=== PATIENT | male | born 1965 | race Caucasian/White ===

== ENCOUNTER 2016-05-01 18:34 | Emergency (ER) | payer OTHER ==
[2016-05-01 18:41] VITALS: BMI 31.3
[2016-05-01 19:47] LABS: URINE APPEARANCE CLEAR; URINE BILIRUBIN NEGATIVE (NEGATIVE); URINE COLOR LTYELLOW; URINE GLUCOSE (UA) NEGATIVE (NEGATIVE); URINE KETONE NEGATIVE (NEGATIVE); URINE LEUK ESTERASE NEGATIVE (NEGATIVE); URINE NITRITE NEGATIVE (NEGATIVE); URINE PROTEIN NEGATIVE (NEGATIVE); URINE UROBILINOGEN 2.0 E.U/dl E.U./dl (0.2-1.0)
[2016-05-01 19:47] LABS: BASOPHIL 0.2 % (0-2.0); EOSINOPHIL 0.9 % (0-4.5); MCH 29.8 pg (25.7-33.7); MCHC 33.5 g/dl (32.0-35.9); MEAN PLT VOLUME 9.8 fl (7.5-11.1); NEUTROPHILS 81.8 % (42.8-82.8); PLATELET COUNT 230 K/MM3 (134-434); RDW 13.5 % (11.9-15.9); WHITE BLOOD COUNT 7.3 K/mm3 (4.0-10.0)
[2016-05-01] MEDS ORDERED: SODIUM CHLORIDE 1,000 ML IV STA (19:47)
--- NOTE | 2016-05-01 19:47 | PDOC ---
History of Present Illness - General History Source: Patient Exam Limitations: No Limitations - History of Present Illness Initial Comments: 05/01/16 20:12 The patient is a 51 year old male with significant past medical history of GERD who presents to the ED with 4 days of fever (TMax 101), generalized abdominal pain, and diarrhea. He states having few episodes of watery loose stools. He denies nausea, vomiting or lack of appetite. Patient also has complaints of diffuse body aches and headache. Recently traveled to [facility] for a 7 days trip, returned Friday. Took Motrin this morning. No recent antibiotic use or hospitalizations. Patient denies any known sick contacts. He states he did not receive his flu shot. The patient denies chills, diaphoresis, cough, SOB, chest pain, and palpitations. Allergies: NKDA Social History: No alcohol, tobacco, or drug use reported. Past Surgical History: left hernia repair, appendectomy PCP: Dr. Silvia Unger <Ami Justin - Last Filed: 05/01/16 20:12> - General History Source: Patient <Jesus Wei - Last Filed: 05/01/16 22:14> - General Chief Complaint: Cold Symptoms Stated Complaint: DIARRHEA Time Seen by Provider: 05/01/16 18:37 Past History <Ami Justin - Last Filed: 05/01/16 20:12> - Past Medical History GI Disorders: Yes (REFLUX) - Surgical History Abdominal Surgery: Yes (L HERNIA REPAIR) Appendectomy: Yes - Psycho/Social/Smoking Cessation Hx Anxiety: No Suicidal Ideation: No Smoking History: Never smoked Have you smoked in the past 12 months: No Hx Alcohol Use: No Drug/Substance Use Hx: No Substance Use Type: None <Jesus Wei - Last Filed: 05/01/16 22:14> - Past Medical History Allergies/Adverse Reactions: Allergies Allergy/AdvReac Type Severity Reaction Status Date / Time No Known Allergies Allergy Verified 05/01/16 18:36 Home Medications: Ambulatory Orders Omeprazole [Prilosec] 40 mg PO DAILY 07/24/15 Review of Systems - Review of Systems Able to Perform ROS?: Yes Comments:: 05/01/16 20:12 CONSTITUTIONAL: +fever Absent: no chills, no fatigue EYES: Absent: visual changes ENT: Absent: ear pain, no sore throat CARDIOVASCULAR: Absent: chest pain, no palpitations RESPIRATORY: Absent: cough, no SOB GI: +abdominal pain, diarrhea Absent: no nausea, no vomiting, no constipation GENITOURINARY: Absent: dysuria, no frequency, no hematuria MUSKULOSKELETAL: +diffuse body aches Absent: back pain, no arthralgia SKIN: Absent: rash NEURO: +headache <Ami Justin - Last Filed: 05/01/16 20:12> *Physical Exam - Vital Signs Last Vital Signs Temp Pulse Resp BP Pulse Ox 100.0 F H 94 H 20 131/80 99 05/01/16 18:36 05/01/16 18:36 05/01/16 19:24 05/01/16 18:36 05/01/16 19:24 - Physical Exam Comments: 05/01/16 20:12 GENERAL: Well-appearing, well-nourished. No apparent distress. HEENT: Normocephalic, atraumatic. PERRL, EOM intact. CARDIOVASCULAR: Normal S1, S2. Regular rate and rhythm. PULMONARY: Clear to auscultation bilaterally. ABDOMEN: Soft, non-distended, non-tender. No rebound or guarding. EXTREMITIES: Normal ROM in all four extremities. No gross deformities. SKIN: Warm, dry. No rash NEUROLOGICAL: No focal neurological deficits. <Ami Justin - Last Filed: 05/01/16 20:12> - Vital Signs Last Vital Signs Temp Pulse Resp BP Pulse Ox 100.0 F H 94 H 20 131/80 99 05/01/16 18:36 05/01/16 18:36 05/01/16 19:24 05/01/16 18:36 05/01/16 19:24 <Jesus Wei - Last Filed: 05/01/16 22:14> Heart Score/ECG Review - ECG Impressions Comment:: 05/01/16 20:12 NSR @92bpm Possible left atrial enlargement Borderline ECG <Ami Justin - Last Filed: 05/01/16 20:12> ED Treatment Course - LABORATORY CBC & Chemistry Diagram: 05/01/16 19:24 05/01/16 19:24 - ADDITIONAL ORDERS Additional order review: Laboratory Results 05/01/16 18:55 Urine Color Ltyellow Urine Appearance Clear Urine pH 6.0 Ur Specific [place] 1.018 Urine Protein Negative Urine Glucose (UA) Negative Urine Ketones Negative Urine Blood 1+ H Urine Nitrite Negative Urine Bilirubin Negative Urine Urobilinogen 2.0 e.u/dl Ur Leukocyte Esterase Negative Urine RBC 2 Urine WBC <1 Urine Mucus Rare 05/01/16 19:24 RBC 5.32 MCV 89.0 MCHC 33.5 RDW 13.5 MPV 9.8 Neutrophils % 81.8 Lymphocytes % 11.2 Monocytes % 5.9 Eosinophils % 0.9 Basophils % 0.2 - Medications Given in the ED: ED Medications Discontinued Medications Generic Name Dose Route Start Last Admin Trade Name Freq PRN Reason Stop Dose Admin Acetaminophen 1,000 mg 05/01/16 19:48 05/01/16 19:55 Ofirmev Injection - IVPB 05/01/16 19:49 1,000 mg ONCE ONE Administration <Ami Justin - Last Filed: 05/01/16 20:12> - LABORATORY CBC & Chemistry Diagram: 05/01/16 19:24 05/01/16 19:24 <Jesus Wei - Last Filed: 05/01/16 22:14> Medical Decision Making - Medical Decision Making 05/01/16 22:13 Dr. Wei: The scribe's documentation has been prepared under my direction and personally reviewed by me in its entirery. I confirm that the note above accurately reflects all work, treatment, procedures, and medical decision making performed by me. Patient now feels better after IVF. Pt tolerated PO fluids. Pt to be discharged. <Jesus Wei - Last Filed: 05/01/16 22:14> *DC/Admit/Observation/Transfer - Attestations Scribe Attestion: 05/01/16 20:13 Documentation prepared by Ami Justin, acting as medical scientific liaison for Jesus Wei MD <Ami Justin - Last Filed: 05/01/16 20:12> - Discharge Dispostion Admit: No <Jesus Wei - Last Filed: 05/01/16 22:14> Diagnosis at time of Disposition: Viral illness Diarrhea Qualifiers: Diarrhea type: unspecified type Qualified Code(s): R19.7 - Diarrhea, unspecified - Discharge Dispostion Disposition: HOME Condition at time of disposition: Stable - Referrals Referrals: Krzysztof Barcenas MD [Primary Care Provider] - - Patient Instructions Printed Discharge Instructions: DI for Viral Syndrome, Diarrhea
[2016-05-01 19:48] LABS: URINE BLOOD 1+ (NEGATIVE)
[2016-05-01] MEDS ORDERED: ACETAMINOPHEN 1000 MG/100 ML VIAL (NON FORMULARY) IVPB ONE (19:48)
[2016-05-01 19:49] LABS: URINE MUCUS RARE; URINE RBC 2 /hpf (0-3); URINE WBC <1 /hpf (3-5)
[2016-05-01 20:22] LABS: ALBUMIN 4.4 g/dl (3.4-5.0); ANION GAP 10 (8-16); CALCIUM 8.9 mg/dL (8.5-10.1); CO2 27 mmol/L (21-32); GLUCOSE,RANDOM 81 mg/dL (74-106); SGOT/AST 20 U/L (15-37); SGPT/ALT 38 U/L (12-78)
[2016-05-01 20:26] LABS: ALK PHOS 77 U/L (45-117); BILIRUBIN,TOTAL 0.5 mg/dL (0.2-1.0); TOT PROT 7.9 g/dl (6.4-8.2); TROPONIN I < 0.02 ng/ml (0.00-0.05)
[2016-05-01 20:27] LABS: URINE APPEARANCE CLEAR; URINE BILIRUBIN NEGATIVE (NEGATIVE); URINE BLOOD NEGATIVE (NEGATIVE); URINE COLOR LTYELLOW; URINE GLUCOSE (UA) NEGATIVE (NEGATIVE); URINE KETONE NEGATIVE (NEGATIVE); URINE LEUK ESTERASE NEGATIVE (NEGATIVE); URINE NITRITE NEGATIVE (NEGATIVE); URINE PROTEIN NEGATIVE (NEGATIVE); URINE UROBILINOGEN NEGATIVE E.U./dl (0.2-1.0)
[2016-05-01 20:28] LABS: ACTIVATED PTT 29.8 SECONDS (26.9-34.4)
[2016-05-01 22:22] VITALS: BP 135/80; PULSE 87; TEMP 98.3
--- NOTE | 2016-05-02 14:58 | EKG ---
Test Reason : Blood Pressure : / mmHG Vent. Rate : 092 BPM Atrial Rate : 092 BPM P-R Int : 148 ms QRS Dur : 086 ms QT Int : 336 ms P-R-T Axes : 055 008 017 degrees QTc Int : 415 ms NORMAL SINUS RHYTHM POSSIBLE LEFT ATRIAL ENLARGEMENT BORDERLINE ECG WHEN COMPARED WITH ECG OF 13-MAY-2007 15:56, NO SIGNIFICANT CHANGE WAS FOUND Confirmed by MARIA T JACOBO MD ([id number]) on 05/02/2016 2:57:54 PM Referred By: Confirmed By:MARIA T JACOBO MD
== END 2016-05-01 22:22 | disposition home or self-care (01) ==
LOC: JER 18:34
PROC: 3E033NZ Introduction of Analgesics, Hypnotics, Sedatives into Peripheral Vein, Percutaneous Approach (ICD-10-PCS; principal; 2016-05-01)
DX: B34.9 Viral infection, unspecified (principal)
CPT/HCPCS: 36415; 71020-TC; 80053; 81003; 81015; 82550; 82553; 82803; 83605; 84484; 85025; 85610; 85730; 86850; 86900; 86901; 87040; 87086; 87804; 93005; 93010; 99284-25

== ENCOUNTER 2021-07-19 04:29 | Day surgery (SDC) | payer OTHER ==
[2021-07-16 11:35] VITALS: BMI 30.8
[2021-07-19 10:04] VITALS: TEMP 97.9
[2021-07-19 11:03] VITALS: BP 113/73; PULSE 72
== END 2021-07-19 11:03 | disposition home or self-care (01) ==
LOC: JASU-ENDO 04:29
PROVIDERS: ATTEND Internal Medicine Gastroenterology
PROC: 0DB78ZX Excision of Stomach, Pylorus, Via Natural or Artificial Opening Endoscopic, Diagnostic (ICD-10-PCS; 2021-07-19)
PROC: 0DB68ZX Excision of Stomach, Via Natural or Artificial Opening Endoscopic, Diagnostic (ICD-10-PCS; 2021-07-19)
PROC: 0DB48ZX Excision of Esophagogastric Junction, Via Natural or Artificial Opening Endoscopic, Diagnostic (ICD-10-PCS; principal; 2021-07-19 09:15)
DX: K29.50 Unspecified chronic gastritis without bleeding (principal); K44.9 Diaphragmatic hernia without obstruction or gangrene
CPT/HCPCS: 88305-TC; 88342-TC

== ENCOUNTER 2021-11-01 04:21 | Day surgery (SDC) | payer OTHER ==
[2021-10-30 09:56] VITALS: BMI 30.8
[2021-11-01 07:28] VITALS: TEMP 97.3
[2021-11-01 09:07] VITALS: BP 111/73; PULSE 68
[2021-11-01 09:11] VITALS: RESP 21
== END 2021-11-01 09:33 | disposition home or self-care (01) ==
LOC: JASU-ENDO 04:21
PROVIDERS: ATTEND Internal Medicine Gastroenterology
PROC: 0DJD8ZZ Inspection of Lower Intestinal Tract, Via Natural or Artificial Opening Endoscopic (ICD-10-PCS; principal; 2021-11-01 08:00)
DX: Z12.11 Encounter for screening for malignant neoplasm of colon (principal); K57.30 Diverticulosis of large intestine without perforation or abscess without bleeding; K64.8 Other hemorrhoids